=== PATIENT | female | born 1995 | race Hispanic/Latino ===

== ENCOUNTER 2017-03-21 15:12 | Emergency (ER) | payer BC, OTHER ==
--- NOTE | 2017-03-21 15:48 | ULT ---
LEFT LOWER EXTREMITY VENOUS DOPPLER ULTRASOUND EVALUATION 03/21/17 HISTORY: Left lower extremity pain. Multiple longitudinal and transverse images of the left lower extremity venous system is obtained usi ng a multihertz linear array transducer. Real time, color flow, and spectral waveform doppler analysi s is used to evaluate the left lower extremity. No evidence of acute or old clots seen in the left common femoral, superficial femoral, femoral prof unda, popliteal, posterior tibial vein, post trifurcation veins or greater saphenous vein. IMPRESSION: No evidence of left lower extremity deep venous thrombosis seen. POS: [facility]
== END 2017-03-21 17:05 | disposition home or self-care (01) ==
LOC: ERS 15:12
DX: S80.12XD Contusion of left lower leg, subsequent encounter (principal); V89.2XXD Person injured in unspecified motor-vehicle accident, traffic, subsequent encounter

== ENCOUNTER 2018-01-17 14:33 | Outpatient (CLI) | payer BC ==
--- NOTE | 2018-01-17 15:25 | RAD ---
2 VIEW CHEST: Date: 01/17/18 No prior comparison. INDICATION: Bronchitis. FINDINGS: No consolidation, effusion, or pneumothorax. Cardiac silhouette is normal size. Osseous structures in tact. IMPRESSION: No focal consolidation. POS: [facility]
== END 2018-01-17 14:34 | disposition home or self-care (01) ==
LOC: BICRAD 14:33
PROVIDERS: ATTEND Family Medicine
DX: J40 Bronchitis, not specified as acute or chronic (principal)
CPT/HCPCS: 71046